=== PATIENT | male | born 1965 | race Caucasian/White ===

== ENCOUNTER → 2018-05-13 | Outpatient (CLI) | payer OTHER ==
[~2018-05-13] MED LIST: ATEN25TA PO; DICL100G29 TP; HYDR-3237 PO; METF500T17 PO
[2018-05-13 13:28] LABS: BASOPHILS # (AUTO) 0.06 x10^3/uL (0-0.1); BASOPHILS % (AUTO) 1 % (0-1); EOSINOPHILS # (AUTO) 0.42 x10^3/uL (0-0.4); EOSINOPHILS % (AUTO) 4 % (1-7); LYMPHOCYTES # (AUTO) 2.59 x10^3/uL (1-3.4); LYMPHOCYTES % (AUTO) 25 % (22-44); MD NO; MEAN CORPUSCULAR HEMOGLOBIN 29.8 pg (27.5-34.5); MEAN CORPUSCULAR HGB CONC 33.8 g/dL (33.2-36.2); MEAN CORPUSCULAR VOLUME 88.3 fL (81-97); MONOCYTES # (AUTO) 0.76 x10^3/uL (0.2-0.8); MONOCYTES % (AUTO) 7 % (2-9); NEUTROPHILS # (AUTO) 6.59 x10^3/uL (1.8-6.8); NEUTROPHILS % (AUTO) 63 % (42-75); PLATELET COUNT 255 x10^3/uL (130-400); RED BLOOD COUNT 5.19 x10^6/uL (4.38-5.82); RED CELL DISTRIBUTION WIDTH 13.7 % (9.4-14.8)
[2018-05-13 13:34] LABS: ALANINE AMINOTRANSFERASE 37 U/L (12-78); ANION GAP 6 mmol/L (5-15); CALCIUM 9.4 mg/dL (8.5-10.1); CHLORIDE 105 mmol/L (98-107)
[2018-05-13 13:37] LABS: ALKALINE PHOSPHATASE 90 U/L (45-117); BILIRUBIN,TOTAL 0.5 mg/dL (0.2-1.0); CREATININE 0.89 mg/dL (0.7-1.3)
[2018-05-13 13:39] LABS: INTERNATIONAL NORMALIZED RATIO 0.96 (0.93-1.1); PROTHROMBIN TIME 10.1 Seconds (9.6-11.5)
== END | disposition home or self-care (01) ==
LOC: STAR 12:22
PROVIDERS: ATTEND Neurological Surgery
DX: Z01.811 Encounter for preprocedural respiratory examination (principal); M51.36 Other intervertebral disc degeneration, lumbar region; M48.062 Spinal stenosis, lumbar region with neurogenic claudication; I44.4 Left anterior fascicular block; E11.9 Type 2 diabetes mellitus without complications
CPT/HCPCS: 36415; 71046; 72110; 80053; 85025; 85610; 85730; 93005

== ENCOUNTER 2018-05-20 07:46 | Inpatient (IN) | payer OTHER ==
[~2018-05-20] VITALS: Ht 177.8 cm; Wt 123.0 kg
[2018-05-20] MEDS ORDERED: LACTATED RINGERS 1,000 ML IV SCH (07:58)
[2018-05-20] MEDS ORDERED: GABAPENTIN 300 MG CAPSULE PO ONE (08:00)
[2018-05-20] MEDS ORDERED: ACETAMINOPHEN 500 MG TABLET PO ONE (08:00)
[2018-05-20] MEDS ORDERED: BACITRACIN 50,000 UNIT ONE (10:26)
[2018-05-20] MEDS ORDERED: THROMBIN 20,000 UNIT VIAL TP ONE (10:26)
[2018-05-20] MEDS ORDERED: BUPIVACAINE/PF-EPI 0.5% 1:200K ONE (10:26)
[2018-05-20] MEDS ORDERED: METOCLOPRAMIDE 5 MG/ML, 2ML IV PRN (10:30)
[2018-05-20] MEDS ORDERED: OXYcodone 5 MG/5 ML ORAL.SOL UDC PO PRN (10:30)
[2018-05-20] MEDS ORDERED: HYDROmorphone 2 MG/ML, 1ML IVPush PRN (10:30)
[2018-05-20] MEDS ORDERED: MEPERIDINE/PF 25MG/0.5ML IVPush PRN (10:30)
[2018-05-20] MEDS ORDERED: LORazepam 2 MG/ML, 1ML IVPush PRN (10:30)
[2018-05-20] MEDS ORDERED: LABETALOL 5MG/ML, 20ML IV PRN (10:30)
[2018-05-20] MEDS ORDERED: MORPHINE SULFATE 4 MG/ML, 1ML IVPush PRN (10:30)
[2018-05-20] MEDS ORDERED: hydrALAzine 20 MG/ML, 1ML IV PRN (10:30)
[2018-05-20] MEDS ORDERED: MIDAZOLAM 1 MG/ML, 2ML ONE (10:44)
[2018-05-20] MEDS ORDERED: ROCURONIUM 10 MG/ML,10ML ONE (11:19)
[2018-05-20] MEDS ORDERED: GLYCOPYRROLATE 0.2MG/1ML, 5ML ONE (11:19)
[2018-05-20] MEDS ORDERED: PROPOFOL 10 MG/ML, 20ML ONE (11:19)
[2018-05-20] MEDS ORDERED: NEOSTIGMINE 1 MG/ML, 10ML ONE (11:19)
[2018-05-20] MEDS ORDERED: ONDANSETRON 2MG/ML, 2ML ONE (11:19)
[2018-05-20] MEDS ORDERED: CEFAZOLIN 1,000 MG ONE (11:19)
[2018-05-20] MEDS ORDERED: SUCCINYLCHOLINE 20 MG/ML, 10ML ONE (11:19)
[2018-05-20] MEDS ORDERED: KETOROLAC 30 MG/1 ML ONE (11:19)
[2018-05-20] MEDS ORDERED: DEXAMETHASONE 4 MG/ML, 1ML ONE (11:19)
[2018-05-20] MEDS ORDERED: FENTANYL PF 250 MCG/5ML ONE (11:26)
[2018-05-20] MEDS ORDERED: FENTANYL PF 100 MCG/2ML ONE ×2 (14:18→14:47)
[2018-05-20] MEDS ORDERED: OXYcodone 5 MG/5 ML ORAL.SOL UDC ONE (14:46)
[2018-05-20] MEDS: FENTANYL PF 100 MCG/2ML IV PRN ×2 (14:55→15:07)
[2018-05-20] MEDS ORDERED: HYDROmorphone PCA 30 MG/30 ML IV PRN (15:00)
[2018-05-20] MEDS ORDERED: DIAZEPAM 5 MG/ML, 2ML IV PRN (16:30)
[2018-05-20] MEDS ORDERED: PROMETHAZINE 25 MG/ML, 1ML IM PRN (16:30)
[2018-05-20] MEDS ORDERED: BISACODYL 10 MG SUPP PR PRN (16:30)
[2018-05-20] MEDS ORDERED: ONDANSETRON 2MG/ML, 2ML IV PRN (16:30)
[2018-05-20] MEDS ORDERED: DIPHENHYDRAMINE 50 MG/ML, 1ML IVPush PRN (16:30)
[2018-05-20] MEDS ORDERED: DIPHENHYDRAMINE 50 MG CAPSULE PO PRN (16:30)
[2018-05-20] MEDS ORDERED: DIAZEPAM 5 MG TABLET PO PRN (16:30)
[2018-05-20] MEDS ORDERED: DIPHENHYDRAMINE 50 MG/ML, 1ML IM PRN (16:30)
[2018-05-20] MEDS ORDERED: HYDROmorphone 2 MG/ML, 1ML IM PRN (16:30)
[2018-05-20] MEDS ORDERED: HYDROmorphone 2MG TABLET PO PRN (16:30)
[2018-05-20] MEDS ORDERED: METHOCARBAMOL 750 MG TABLET PO PRN (16:30)
[2018-05-20] MEDS ORDERED: MAGNESIUM HYDROXIDE 8%, 30ML UDC PO PRN (16:30)
[2018-05-20] MEDS: metFORMIN 500 MG TABLET PO SCH (16:47)
[2018-05-20] MEDS: NS + 20MEQ KCL 1,000 ML IV SCH (16:47)
[2018-05-20 19:11] VITALS: BP 106/76
[2018-05-20] MEDS: CEFAZOLIN PMX 1GM/50ML 50 ML IVPB SCH (20:18)
[2018-05-20] MEDS ORDERED: ZOLPIDEM 5MG TABLET PO PRN (21:00)
[2018-05-21 00:16] VITALS: BP 120/75
[2018-05-21 03:28] VITALS: BP 116/64
[2018-05-21] MEDS: CEFAZOLIN PMX 1GM/50ML 50 ML IVPB SCH (04:39)
[2018-05-21] MEDS: NS + 20MEQ KCL 1,000 ML IV SCH (05:49)
[2018-05-21] MEDS ORDERED: ATENOLOL 25 MG TABLET PO SCH (06:00)
[2018-05-21 07:29] VITALS: BP 103/66
[2018-05-21] MEDS: OXYcodone/APAP 5/325MG TABLET PO PRN ×3 (07:58→16:07)
[2018-05-21] MEDS: metFORMIN 500 MG TABLET PO SCH (07:58)
[2018-05-21] MEDS ORDERED: OXYC-302 PO ×2 (08:14→09:29)
[2018-05-21] MEDS ORDERED: SENNA/DOCUSATE TABLET PO SCH (09:00)
[2018-05-21] MEDS ORDERED: METH750T87 PO (09:29)
[2018-05-21] MEDS ORDERED: SENN-177 PO (09:30)
[2018-05-21 12:37] VITALS: BP 116/75
== END 2018-05-21 16:30 | disposition home or self-care (01) | DRG 516 ==
LOC: OUT 07:46 → 4NOR 15:55 → OUT 16:05 → DCLOUNGE 05-21 16:15
PROVIDERS: ADMIT Neurological Surgery; ATTEND Neurological Surgery
PROC: 00U20KZ Supplement Dura Mater with Nonautologous Tissue Substitute, Open Approach (ICD-10-PCS; 2018-05-20)
PROC: 01NB0ZZ Release Lumbar Nerve, Open Approach (ICD-10-PCS; principal; 2018-05-20 11:00)
DX: M48.062 Spinal stenosis, lumbar region with neurogenic claudication (principal); G96.11 Dural tear; M54.16 Radiculopathy, lumbar region; Z72.89 Other problems related to lifestyle; I10 Essential (primary) hypertension; E11.9 Type 2 diabetes mellitus without complications; G89.29 Other chronic pain; Z98.1 Arthrodesis status; Z83.3 Family history of diabetes mellitus; Z82.49 Family history of ischemic heart disease and other diseases of the circulatory system; Z82.0 Family history of epilepsy and other diseases of the nervous system
CPT/HCPCS: 72100; J3490; 82962; C1713; G0378; J0690; J1100; J1170; J1885; J2250; J2405; J2704; J2710; J3010; J3480; C1781; J0330